=== PATIENT | male | born 1950 | race Hispanic/Latino ===

== ENCOUNTER 2021-06-27 16:30 | Inpatient (IN) | payer MEDICARE ==
[~2021-06-27] VITALS: Ht 167.6 cm; Wt 70.3 kg
[2021-06-27] MEDS ORDERED: NITROGLYCERIN 0.4 MG SL TAB SL ONE (16:38)
[2021-06-27] MEDS ORDERED: ASPIRIN 325MG TAB ONE (16:38)
[2021-06-27 16:59] LABS: BASOPHILS % (AUTO) 1.8 % (0.0-5.0); EOSINOPHILS % (AUTO) 2.4 % (0.0-8.0); HEMATOCRIT 39.1 % (42-54); LYMPHOCYTES % (AUTO) 9.2 % (21.0-51.0); MEAN CORPUSCULAR HEMOGLOBIN 31.2 pg (27.0-33.0); MEAN CORPUSCULAR HGB CONC 32.2 g/dL (32.0-36.0); MEAN CORPUSCULAR VOLUME 96.8 fL (79-99); MONOCYTES % (AUTO) 18.5 % (3.0-13.0); PLATELET COUNT (AUTO) 304 K/uL (130-400); RED BLOOD CELL COUNT(AUTO) 4.04 MIL/uL (4.50-6.20); WHITE BLOOD COUNT (AUTO) 19.5 K/uL (4.8-10.8)
[2021-06-27] MEDS ORDERED: ASPIRIN 325MG TAB PO ONE (17:00)
[2021-06-27] MEDS ORDERED: NITROGLYCERIN 0.4 MG SL TAB SL PRN ×3 (17:00→20:30)
[2021-06-27 17:10] LABS: CREATININE 1.3 mg/dL (0.5-1.5); POTASSIUM 4.3 mmol/L (3.5-5.1)
[2021-06-27 17:12] LABS: INR 1.04 (0.85-1.15); PROTHROMBIN TIME 11.3 SEC (9.6-11.6)
[2021-06-27 17:15] LABS: BILIRUBIN,TOTAL 0.2 mg/dL (0.2-1.0); TOTAL PROTEIN, SERUM 7.9 g/dL (6.0-8.3)
[2021-06-27 17:24] LABS: B-TYPE NATRIURETIC PEPTIDE 851 pg/mL (0-100)
[2021-06-27 19:11] LABS: APPEARANCE,URINE Clear (CLEAR); BILIRUBIN,URINE Negative (NEGATIVE); COLOR,URINE Yellow (YELLOW); GLUCOSE, URINE (UA) >=1000 mg/dL (NEGATIVE); KETONES,URINE Negative (NEGATIVE); LEUKOCYTE ESTERASE ,URINE Negative (NEGATIVE); NITRATE,URINE Negative (NEGATIVE); OCCULT BLOOD,URINE Negative (NEGATIVE); PROTEIN,URINE POS 1+ mg/dL (NEGATIVE)
[2021-06-27 19:20] LABS: AMPHET/METH SCREEN,URINE NEGATIVE (NEGATIVE); BARBITURATE SCREEN, URINE NEGATIVE (NEGATIVE); BENZODIAZEPINES SCREEN,URINE NEGATIVE (NEGATIVE); CANNABINOID SCREEN,URINE NEGATIVE (NEGATIVE); COCAINE SCREEN,URINE NEGATIVE (NEGATIVE); OPIATE SCREEN,URINE NEGATIVE (NEGATIVE); PHENCYCLIDINE SCREEN,URINE NEGATIVE (NEGATIVE)
[2021-06-27 19:21] LABS: BACTERIA,URINE None Seen /HPF (None Seen); RBC,URINE None Seen /HPF (0-1); WBC,URINE None Seen /HPF (0-1)
[2021-06-27] MEDS ORDERED: GUAIFENESIN-DM 200/20 MG 10 ML PO PRN (20:30)
[2021-06-27] MEDS ORDERED: HYDRALAZINE 20MG/ML VIAL IV PRN (20:30)
[2021-06-27] MEDS ORDERED: ACETAMINOPHEN 325 MG TAB PO PRN ×2 (20:30)
[2021-06-27] MEDS ORDERED: MORPHINE 2 MG SYG IV PRN (20:30)
[2021-06-27] MEDS ORDERED: ONDANSETRON 4MG INJ IV PRN (20:30)
[2021-06-27] MEDS ORDERED: DEXAMETHASONE SOD PHOSPHATE 4 MG/ML 1ML VIAL IVP SCH (20:30)
[2021-06-27 20:58] LABS: CHOLESTEROL 131 mg/dL (<200); HDL CHOLESTEROL 35 mg/dL (29-71); LDL DIRECT 75 mg/dL (0-99); TRIGLYCERIDES 73 mg/dL (30-200)
[2021-06-27] MEDS: INSULIN HUMULIN R 100 UNIT/ML 3ML SQ SCH (21:00)
[2021-06-27 21:35] LABS: ABG BASE EXCESS -0.6 mmol/L (-2.0-3.0); ABG HCO3 25.9 mmol/L (21.0-28.0); ABG OXYGEN SATURATION 97.8 % (95.0-99.0); ABG PCO2 49 mmHg (35-48)
[2021-06-27] MEDS ORDERED: IPRATROPIUM/ALBUTEROL SULFATE 3 ML SOLUTION IH ONE ×2 (21:40→22:00)
[2021-06-27] MEDS: CEFTRIAXONE 1G VIAL IV SCH (22:01)
[2021-06-27] MEDS: 0.9% NACL 250ML IVPB SCH (22:02)
[2021-06-27] MEDS: AZITHROMYCIN 500MG VIAL IVPB SCH (22:02)
[2021-06-28 05:01] LABS: HEMATOCRIT 33.2 % (42-54); MEAN CORPUSCULAR HEMOGLOBIN 30.8 pg (27.0-33.0); MEAN CORPUSCULAR HGB CONC 32.2 g/dL (32.0-36.0); MEAN CORPUSCULAR VOLUME 95.7 fL (79-99); RED BLOOD CELL COUNT(AUTO) 3.47 MIL/uL (4.50-6.20)
[2021-06-28] MEDS: IPRATROPIUM/ALBUTEROL SULFATE 3 ML SOLUTION IH SCH ×4 (06:14→23:06)
[2021-06-28] MEDS: INSULIN HUMULIN R 100 UNIT/ML 3ML SQ SCH ×4 (07:30→20:38)
[2021-06-28] MEDS: ASPIRIN 81MG CHEW TAB PO SCH (07:40)
[2021-06-28] MEDS: FAMOTIDINE 20MG VIAL IV SCH (07:40)
[2021-06-28] MEDS: ENOXAPARIN SODIUM 40 MG/0.4 ML SYRINGE SQ SCH (07:40)
[2021-06-28] MEDS: CARVEDILOL 3.125 MG TABLET PO SCH ×2 (08:06→20:38)
[2021-06-28 08:47] LABS: MAGNESIUM 2.3 mg/dL (1.80-2.40); POTASSIUM 4.1 mmol/L (3.5-5.1)
[2021-06-28] MEDS ORDERED: FUROSEMIDE 20MG VIAL IV SCH (09:00)
[2021-06-28] MEDS ORDERED: PREDNISONE 20 MG TABLET PO SCH (11:00)
[2021-06-28] MEDS: BUDESONIDE 0.5 MG/2 ML INH IH SCH ×2 (11:44→18:33)
[2021-06-28] MEDS: CLOPIDOGREL 75MG TAB PO SCH (12:57)
[2021-06-28] MEDS: DEXAMETHASONE SOD PHOSPHATE 4 MG/ML 1ML VIAL IVP SCH ×2 (12:57→18:43)
[2021-06-28] MEDS ORDERED: SODIUM CHLORIDE 3% FOR INHALATION 4 ML/AMP VIAL.NEB IH ONE (18:36)
[2021-06-28] MEDS ORDERED: FURO40TA5 PO (19:30)
[2021-06-28] MEDS ORDERED: CITA10TA89 PO (19:30)
[2021-06-28] MEDS ORDERED: ALBUHFA IH (19:30)
[2021-06-28] MEDS ORDERED: SPIR25TA6 PO (19:30)
[2021-06-28] MEDS ORDERED: CARV3.12 PO (19:30)
[2021-06-28] MEDS ORDERED: AEC81 PO (19:30)
[2021-06-28] MEDS ORDERED: LEVO50CA4 PO (19:30)
[2021-06-28] MEDS ORDERED: IPRA0.2S54 IH (19:30)
[2021-06-28] MEDS ORDERED: CLOP100P MC (19:30)
[2021-06-28] MEDS ORDERED: EMPA10TA PO (19:30)
[2021-06-28] MEDS ORDERED: LISI5TAB21 PO (19:30)
[2021-06-28] MEDS ORDERED: METO-408 PO (19:30)
[2021-06-28] MEDS: FUROSEMIDE 20MG VIAL IV SCH (20:36)
[2021-06-28] MEDS: CEFTRIAXONE 1G VIAL IV SCH (20:36)
[2021-06-28] MEDS: 0.9% NACL 250ML IVPB SCH (20:38)
[2021-06-28] MEDS: AZITHROMYCIN 500MG VIAL IVPB SCH (20:38)
[2021-06-29] MEDS: DEXAMETHASONE SOD PHOSPHATE 4 MG/ML 1ML VIAL IVP SCH ×2 (00:22→07:00)
[2021-06-29] MEDS: BUDESONIDE 0.5 MG/2 ML INH IH SCH (06:09)
[2021-06-29] MEDS: IPRATROPIUM/ALBUTEROL SULFATE 3 ML SOLUTION IH SCH ×2 (06:09→11:04)
[2021-06-29] MEDS: INSULIN HUMULIN R 100 UNIT/ML 3ML SQ SCH ×2 (07:23→11:56)
[2021-06-29 07:40] LABS: BASOPHILS % (AUTO) 0.6 % (0.0-5.0); EOSINOPHILS % (AUTO) 0.1 % (0.0-8.0); HEMATOCRIT 32.7 % (42-54); LYMPHOCYTES % (AUTO) 5.2 % (21.0-51.0); MEAN CORPUSCULAR HEMOGLOBIN 31.1 pg (27.0-33.0); MEAN CORPUSCULAR HGB CONC 32.7 g/dL (32.0-36.0); MEAN CORPUSCULAR VOLUME 95.1 fL (79-99); MONOCYTES % (AUTO) 4.4 % (3.0-13.0); NEUTROPHILS % (AUTO) 85.8 % (40.0-77.0); PLATELET COUNT (AUTO) 282 K/uL (130-400); RED BLOOD CELL COUNT(AUTO) 3.44 MIL/uL (4.50-6.20); RED CELL DISTRIBUTION WIDTH 15.6 % (11.0-15.5)
[2021-06-29 07:49] LABS: CREATININE 1.1 mg/dL (0.5-1.5); MAGNESIUM 2.4 mg/dL (1.80-2.40); POTASSIUM 4.8 mmol/L (3.5-5.1)
[2021-06-29] MEDS: FAMOTIDINE 20MG VIAL IV SCH (08:43)
[2021-06-29] MEDS: FUROSEMIDE 20MG VIAL IV SCH (08:43)
[2021-06-29] MEDS: ASPIRIN 81MG CHEW TAB PO SCH (08:43)
[2021-06-29] MEDS: CLOPIDOGREL 75MG TAB PO SCH (08:44)
[2021-06-29] MEDS: CARVEDILOL 3.125 MG TABLET PO SCH (08:47)
[2021-06-29] MEDS: ENOXAPARIN SODIUM 40 MG/0.4 ML SYRINGE SQ SCH (08:47)
[2021-06-29] MEDS ORDERED: NICOTINE 21 MG/ 24 HR PATCH TD SCH (09:00)
[2021-06-29] MEDS ORDERED: CEFDINIR 250MG/5ML 60ML BOTTLE PO SCH (11:30)
[2021-06-29] MEDS ORDERED: CEFD250S3 PO (13:03)
[2021-06-29] MEDS ORDERED: PRED20B PO (13:03)
[2021-06-29 15:51] VITALS: BP 110/60
[2021-06-30] MEDS ORDERED: PREDNISONE 20 MG TABLET PO SCH (09:00)
[2021-09-16] MEDS ORDERED: TIOT18CA3 IH (16:52)
[2021-09-16] MEDS ORDERED: TIZA-211 PO (16:52)
[2021-09-16] MEDS ORDERED: DICL50TA9 PO (16:52)
[2021-09-16] MEDS ORDERED: CITA10TA89 PO (16:52)
[2021-09-16] MEDS ORDERED: CLOP75TA32 PO (16:52)
[2021-09-16] MEDS ORDERED: SPIR25TA6 PO (16:52)
[2021-09-16] MEDS ORDERED: GABA300C PO (16:52)
[2021-09-16] MEDS ORDERED: FLUT1AER IH (16:52)
[2021-09-16] MEDS ORDERED: EMPA10TA PO (16:52)
== END 2021-06-29 16:30 | disposition home or self-care (01) | DRG 189 ==
LOC: EDH 16:30 → EDHIP 20:18
PROVIDERS: ADMIT Internal Medicine; ATTEND Internal Medicine
DX: J96.21 Acute and chronic respiratory failure with hypoxia (principal); I13.0 Hypertensive heart and chronic kidney disease with heart failure and stage 1 through stage 4 chronic kidney disease, or unspecified chronic kidney disease; I24.9 Acute ischemic heart disease, unspecified; J44.1 Chronic obstructive pulmonary disease with (acute) exacerbation; J44.0 Chronic obstructive pulmonary disease with (acute) lower respiratory infection; N17.9 Acute kidney failure, unspecified; I25.110 Atherosclerotic heart disease of native coronary artery with unstable angina pectoris; J96.22 Acute and chronic respiratory failure with hypercapnia; J20.9 Acute bronchitis, unspecified; I50.9 Heart failure, unspecified; Z20.822 Contact with and (suspected) exposure to COVID-19; E78.5 Hyperlipidemia, unspecified; F17.210 Nicotine dependence, cigarettes, uncomplicated; F14.10 Cocaine abuse, uncomplicated; N18.30 Chronic kidney disease, stage 3 unspecified; E11.22 Type 2 diabetes mellitus with diabetic chronic kidney disease; I25.2 Old myocardial infarction; Z95.5 Presence of coronary angioplasty implant and graft; Z91.19 Patient's noncompliance with other medical treatment and regimen; Z86.73 Personal history of transient ischemic attack (TIA), and cerebral infarction without residual deficits
CPT/HCPCS: 36415; 36600; 70450; 71045; 80048; 80053; 80061; 80305; 81001; 82550; 82803; 82948; 83036; 83605; 83735; 83874; 83880; 84145; 84484; 85025; 85027; 85610; 87040; 87071; 87088; 87205; 87635; 93005; 93970; 94640; 94664; C9803; G0378; J0696; J1100; J1650; J1815; J1940; J3490

== ENCOUNTER 2021-10-30 15:58 | Inpatient (IN) | payer OTHER ==
[~2021-10-30] VITALS: Ht 167.6 cm; Wt 67.6 kg
[~2021-10-30 15:58] MED LIST: CITA10TA89 PO; CLOP75TA32 PO; DICL50TA9 PO; EMPA10TA PO; FLUT1AER IH; GABA300C PO; SPIR25TA6 PO; TIOT18CA3 IH; TIZA-211 PO
[2021-10-30] MEDS ORDERED: TRAMADOL /APAP 37.5MG/325MG TAB PO ONE (16:30)
[2021-10-30 16:34] LABS: BASOPHILS % (AUTO) 1.7 % (0.0-5.0); EOSINOPHILS % (AUTO) 2.1 % (0.0-8.0); HEMATOCRIT 32.1 % (42-54); LYMPHOCYTES % (AUTO) 9.5 % (21.0-51.0); MEAN CORPUSCULAR HEMOGLOBIN 31.8 pg (27.0-33.0); MEAN CORPUSCULAR HGB CONC 31.8 g/dL (32.0-36.0); MONOCYTES % (AUTO) 20.2 % (3.0-13.0); NEUTROPHILS % (AUTO) 39.7 % (40.0-77.0); NUCLEATED RED BLOOD CELLS 0.2 % (0.0-0.19); PLATELET COUNT (AUTO) 355 K/uL (130-400); RED BLOOD CELL COUNT(AUTO) 3.21 MIL/uL (4.50-6.20); WHITE BLOOD COUNT (AUTO) 22.3 K/uL (4.8-10.8)
[2021-10-30 16:43] LABS: CREATININE 1.2 mg/dL (0.5-1.5); POTASSIUM 4.8 mmol/L (3.5-5.1)
[2021-10-30 16:46] LABS: INR 1.04 (0.85-1.15); PROTHROMBIN TIME 11.3 SEC (9.6-11.6)
[2021-10-30 16:47] LABS: PARTIAL THROMBOPLASTIN TIME 29.9 SEC (26.3-35.5)
[2021-10-30 16:52] LABS: ALBUMIN 3.8 g/dL (3.5-5.0); BILIRUBIN,TOTAL 0.3 mg/dL (0.2-1.0); TOTAL PROTEIN, SERUM 8.2 g/dL (6.0-8.3)
[2021-10-30 17:21] LABS: AMPHET/METH SCREEN,URINE NEGATIVE (NEGATIVE); BARBITURATE SCREEN, URINE NEGATIVE (NEGATIVE); BENZODIAZEPINES SCREEN,URINE NEGATIVE (NEGATIVE); CANNABINOID SCREEN,URINE NEGATIVE (NEGATIVE); COCAINE SCREEN,URINE POSITIVE (NEGATIVE); OPIATE SCREEN,URINE NEGATIVE (NEGATIVE); PHENCYCLIDINE SCREEN,URINE NEGATIVE (NEGATIVE)
[2021-10-30] MEDS ORDERED: ENOXAPARIN SODIUM 60 MG/0.6 ML SQ ONE (18:00)
[2021-10-30] MEDS ORDERED: ASPIRIN 325MG EC TAB PO ONE (18:00)
[2021-10-30] MEDS ORDERED: 0.9% NACL 250ML 250 ML IV ONE (18:00)
[2021-10-30] MEDS ORDERED: ONDANSETRON 4MG INJ IVP PRN (18:30)
[2021-10-30] MEDS ORDERED: ACETAMINOPHEN 650 MG SUPPOSITORY RC PRN (18:30)
[2021-10-30] MEDS ORDERED: CLONIDINE HCL 0.1 MG TABLET PO PRN (18:30)
[2021-10-30 19:51] LABS: APPEARANCE,URINE CLEAR (CLEAR); BILIRUBIN,URINE NEGATIVE (NEGATIVE); COLOR,URINE YELLOW (YELLOW); GLUCOSE, URINE (UA) >=1000 mg/dL (NEGATIVE); KETONES,URINE NEGATIVE (NEGATIVE); LEUKOCYTE ESTERASE ,URINE NEGATIVE (NEGATIVE); NITRATE,URINE NEGATIVE (NEGATIVE); OCCULT BLOOD,URINE NEGATIVE (NEGATIVE); PH,URINE 6.5 (5.0-8.0); PROTEIN,URINE NEGATIVE (NEGATIVE); UROBILINOGEN,URINE 0.2 mg/dL (0.2-1.0)
[2021-10-30 19:56] LABS: BACTERIA,URINE Rare /HPF (None Seen); RBC,URINE 0-1 /HPF (0-1); SQUAMOUS EPITHELIAL CELL,UR Few /HPF (0-2); WBC,URINE 0-1 /HPF (0-1)
[2021-10-30] MEDS: INSULIN HUMULIN R 100 UNIT/ML 3ML SQ SCH (21:00)
[2021-10-30 21:40] VITALS: BP 123/59
[2021-10-30] MEDS: ACETAMINOPHEN 325 MG TAB PO PRN (22:12)
[2021-10-31] VITALS: BP 137/65
[2021-10-31 01:03] LABS: CREATINE KINASE, TOTAL 99 U/L (21-232); MYOGLOBIN 31 ng/mL (10-92)
[2021-10-31 04:00] VITALS: BP 127/70
[2021-10-31] MEDS: MORPHINE 2 MG SYG IVP PRN ×2 (05:22→19:55)
[2021-10-31 05:52] LABS: BASOPHILS % (AUTO) 2.1 % (0.0-5.0); EOSINOPHILS % (AUTO) 2.7 % (0.0-8.0); MEAN CORPUSCULAR HEMOGLOBIN 32.2 pg (27.0-33.0); MEAN CORPUSCULAR HGB CONC 31.9 g/dL (32.0-36.0); MONOCYTES % (AUTO) 19.9 % (3.0-13.0); NEUTROPHILS % (AUTO) 44.6 % (40.0-77.0); NUCLEATED RED BLOOD CELLS 0.1 % (0.0-0.19); PLATELET COUNT (AUTO) 336 K/uL (130-400); RED BLOOD CELL COUNT(AUTO) 3.07 MIL/uL (4.50-6.20); RED CELL DISTRIBUTION WIDTH 16.3 % (11.0-15.5); WHITE BLOOD COUNT (AUTO) 22.4 K/uL (4.8-10.8)
[2021-10-31 06:12] LABS: B-TYPE NATRIURETIC PEPTIDE 349 pg/mL (0-100)
[2021-10-31 06:29] LABS: MAGNESIUM 2.3 mg/dL (1.80-2.40); PHOSPHORUS 3.2 mg/dL (2.5-4.9); POTASSIUM 4.6 mmol/L (3.5-5.1); THYROID STIMULATING HORMONE 25.42 uIU/mL (0.36-3.74)
[2021-10-31] MEDS: INSULIN HUMULIN R 100 UNIT/ML 3ML SQ SCH ×4 (06:32→21:08)
[2021-10-31] MEDS: BUDESONIDE 0.5 MG/2 ML INH IH SCH ×2 (06:59→18:54)
[2021-10-31 07:50] VITALS: BP 135/76
[2021-10-31] MEDS: ACETAMINOPHEN 325 MG TAB PO PRN (08:45)
[2021-10-31] MEDS: ASPIRIN 81MG CHEW TAB PO SCH (08:46)
[2021-10-31] MEDS: PANTOPRAZOLE 40 MG TAB DR PO SCH (08:46)
[2021-10-31] MEDS: ENOXAPARIN SODIUM 40 MG/0.4 ML SYRINGE SQ SCH (08:47)
[2021-10-31] MEDS: LEVOFLOXACIN 750 MG/D5W 150 ML 150 ML IV SCH (08:48)
[2021-10-31] MEDS: IPRATROPIUM/ALBUTEROL SULFATE 3 ML SOLUTION IH SCH ×3 (11:16→23:41)
[2021-10-31 11:25] VITALS: BP 122/74
[2021-10-31 15:25] VITALS: BP 112/76
[2021-10-31 20:00] VITALS: BP 127/67
[2021-11-01] VITALS: BP 135/79
[2021-11-01 04:00] VITALS: BP 109/62
[2021-11-01 04:54] LABS: BASOPHILS % (AUTO) 1.1 % (0.0-5.0); EOSINOPHILS % (AUTO) 1.3 % (0.0-8.0); HEMATOCRIT 30.7 % (42-54); LYMPHOCYTES % (AUTO) 5.5 % (21.0-51.0); MEAN CORPUSCULAR HEMOGLOBIN 31.6 pg (27.0-33.0); MEAN CORPUSCULAR HGB CONC 31.9 g/dL (32.0-36.0); MONOCYTES % (AUTO) 18.6 % (3.0-13.0); NEUTROPHILS % (AUTO) 58.1 % (40.0-77.0); NUCLEATED RED BLOOD CELLS 0.1 % (0.0-0.19); PLATELET COUNT (AUTO) 325 K/uL (130-400); RED CELL DISTRIBUTION WIDTH 15.9 % (11.0-15.5); WHITE BLOOD COUNT (AUTO) 26.4 K/uL (4.8-10.8)
[2021-11-01 05:11] LABS: ALBUMIN 3.5 g/dL (3.5-5.0); BILIRUBIN,TOTAL 0.4 mg/dL (0.2-1.0); CREATININE 1.2 mg/dL (0.5-1.5); POTASSIUM 4.2 mmol/L (3.5-5.1); TOTAL PROTEIN, SERUM 7.6 g/dL (6.0-8.3)
[2021-11-01] MEDS: INSULIN HUMULIN R 100 UNIT/ML 3ML SQ SCH ×4 (05:42→20:26)
[2021-11-01] MEDS: LEVOTHYROXINE 50 MCG TABLET PO SCH (06:05)
[2021-11-01] MEDS: BUDESONIDE 0.5 MG/2 ML INH IH SCH ×2 (06:26→18:55)
[2021-11-01] MEDS: IPRATROPIUM/ALBUTEROL SULFATE 3 ML SOLUTION IH SCH ×4 (06:26→23:28)
[2021-11-01 07:30] VITALS: BP 126/77
[2021-11-01] MEDS: LEVOFLOXACIN 750 MG/D5W 150 ML 150 ML IV SCH (09:00)
[2021-11-01] MEDS: ENOXAPARIN SODIUM 40 MG/0.4 ML SYRINGE SQ SCH (09:01)
[2021-11-01] MEDS: ASPIRIN 81MG CHEW TAB PO SCH (09:01)
[2021-11-01] MEDS: PANTOPRAZOLE 40 MG TAB DR PO SCH (09:02)
[2021-11-01] MEDS ORDERED: SODIUM CHLORIDE 3% FOR INHALATION 4 ML/AMP VIAL.NEB IH ONE (11:12)
[2021-11-01 11:20] VITALS: BP 105/68
[2021-11-01] MEDS: ACETAMINOPHEN 325 MG TAB PO PRN ×2 (13:50→20:32)
[2021-11-01] MEDS ORDERED: ARTIFICAL TEARS SOL 15 ML OU PRN (15:00)
[2021-11-01 15:25] VITALS: BP 122/69
[2021-11-01 20:00] VITALS: BP 119/59
[2021-11-01] MEDS: TEMAZEPAM 15 MG CAPSULE PO PRN (20:32)
[2021-11-01] MEDS ORDERED: FURO40TA5 PO (23:45)
[2021-11-01] MEDS ORDERED: ATOR40TA71 PO (23:45)
[2021-11-01] MEDS ORDERED: IPRA3AMP24 NEB (23:45)
[2021-11-01] MEDS ORDERED: CITA-106 PO (23:45)
[2021-11-01] MEDS ORDERED: CARV3.12 PO (23:45)
[2021-11-02] VITALS (7 sets, daily range): BP systolic 105–136; BP diastolic 59–73
[2021-11-02 04:34] LABS: BASOPHILS % (AUTO) 1.3 % (0.0-5.0); EOSINOPHILS % (AUTO) 2.3 % (0.0-8.0); HEMATOCRIT 29.6 % (42-54); LYMPHOCYTES % (AUTO) 9.6 % (21.0-51.0); MEAN CORPUSCULAR HEMOGLOBIN 31.6 pg (27.0-33.0); MEAN CORPUSCULAR HGB CONC 32.1 g/dL (32.0-36.0); MEAN CORPUSCULAR VOLUME 98.3 fL (79-99); MONOCYTES % (AUTO) 22.8 % (3.0-13.0); NUCLEATED RED BLOOD CELLS 0.1 % (0.0-0.19); PLATELET COUNT (AUTO) 325 K/uL (130-400); RED BLOOD CELL COUNT(AUTO) 3.01 MIL/uL (4.50-6.20); RED CELL DISTRIBUTION WIDTH 16.1 % (11.0-15.5); WHITE BLOOD COUNT (AUTO) 19.1 K/uL (4.8-10.8)
[2021-11-02 04:49] LABS: ALBUMIN 3.3 g/dL (3.5-5.0); BILIRUBIN,TOTAL 0.3 mg/dL (0.2-1.0); CREATININE 1.2 mg/dL (0.5-1.5); POTASSIUM 3.9 mmol/L (3.5-5.1); TOTAL PROTEIN, SERUM 7.3 g/dL (6.0-8.3)
[2021-11-02] MEDS: LEVOTHYROXINE 50 MCG TABLET PO SCH (05:28)
[2021-11-02] MEDS: INSULIN HUMULIN R 100 UNIT/ML 3ML SQ SCH ×4 (05:47→20:56)
[2021-11-02] MEDS: IPRATROPIUM/ALBUTEROL SULFATE 3 ML SOLUTION IH SCH ×4 (07:53→23:57)
[2021-11-02] MEDS: BUDESONIDE 0.5 MG/2 ML INH IH SCH ×2 (07:53→19:09)
[2021-11-02] MEDS: LEVOFLOXACIN 750 MG/D5W 150 ML 150 ML IV SCH (08:37)
[2021-11-02] MEDS: ASPIRIN 81MG CHEW TAB PO SCH (08:37)
[2021-11-02] MEDS: PANTOPRAZOLE 40 MG TAB DR PO SCH (08:37)
[2021-11-02] MEDS: ENOXAPARIN SODIUM 40 MG/0.4 ML SYRINGE SQ SCH (08:38)
[2021-11-02] MEDS: ACETAMINOPHEN 325 MG TAB PO PRN ×2 (11:26→20:55)
[2021-11-02] MEDS: TEMAZEPAM 15 MG CAPSULE PO PRN (20:55)
[2021-11-03 04:14] VITALS: BP 115/69
[2021-11-03] MEDS: LEVOTHYROXINE 50 MCG TABLET PO SCH (04:59)
[2021-11-03 05:24] LABS: CREATININE 1.2 mg/dL (0.5-1.5); POTASSIUM 4.2 mmol/L (3.5-5.1)
[2021-11-03 05:28] LABS: HEMATOCRIT 28.7 % (42-54); MEAN CORPUSCULAR HEMOGLOBIN 31.2 pg (27.0-33.0); MEAN CORPUSCULAR HGB CONC 31.7 g/dL (32.0-36.0); MEAN CORPUSCULAR VOLUME 98.3 fL (79-99); NUCLEATED RED BLOOD CELLS 0.2 % (0.0-0.19); RED BLOOD CELL COUNT(AUTO) 2.92 MIL/uL (4.50-6.20)
[2021-11-03] MEDS: INSULIN HUMULIN R 100 UNIT/ML 3ML SQ SCH ×3 (05:55→16:30)
[2021-11-03] MEDS: IPRATROPIUM/ALBUTEROL SULFATE 3 ML SOLUTION IH SCH ×2 (07:03→11:31)
[2021-11-03] MEDS: BUDESONIDE 0.5 MG/2 ML INH IH SCH (07:03)
[2021-11-03 08:00] VITALS: BP 132/68
[2021-11-03] MEDS: LEVOFLOXACIN 750 MG/D5W 150 ML 150 ML IV SCH (08:19)
[2021-11-03] MEDS: ASPIRIN 81MG CHEW TAB PO SCH (08:20)
[2021-11-03] MEDS: PANTOPRAZOLE 40 MG TAB DR PO SCH (08:20)
[2021-11-03] MEDS: ENOXAPARIN SODIUM 40 MG/0.4 ML SYRINGE SQ SCH (08:21)
[2021-11-03 12:00] VITALS: BP 119/76
[2021-11-03 16:00] VITALS: BP 131/75
[2021-11-03] MEDS ORDERED: LEVO500T90 PO (16:22)
== END 2021-11-03 17:15 | disposition home or self-care (01) | DRG 191 ==
LOC: EDH 15:58 → EDHIP 18:04 → OBSVTOIN 18:04 → INTOOBSV 18:04 → 3DH 21:18
PROVIDERS: ADMIT Internal Medicine Critical Care Medicine; ATTEND Internal Medicine Critical Care Medicine
DX: J44.1 Chronic obstructive pulmonary disease with (acute) exacerbation (principal); I13.0 Hypertensive heart and chronic kidney disease with heart failure and stage 1 through stage 4 chronic kidney disease, or unspecified chronic kidney disease; I50.20 Unspecified systolic (congestive) heart failure; I69.351 Hemiplegia and hemiparesis following cerebral infarction affecting right dominant side; C92.10 Chronic myeloid leukemia, BCR/ABL-positive, not having achieved remission; S00.83XA Contusion of other part of head, initial encounter; D63.8 Anemia in other chronic diseases classified elsewhere; F14.10 Cocaine abuse, uncomplicated; E78.5 Hyperlipidemia, unspecified; F32.A Depression, unspecified; E03.9 Hypothyroidism, unspecified; E11.22 Type 2 diabetes mellitus with diabetic chronic kidney disease; E11.649 Type 2 diabetes mellitus with hypoglycemia without coma; F17.200 Nicotine dependence, unspecified, uncomplicated; I25.10 Atherosclerotic heart disease of native coronary artery without angina pectoris; N18.9 Chronic kidney disease, unspecified; W01.0XXA Fall on same level from slipping, tripping and stumbling without subsequent striking against object, initial encounter; Y92.410 Unspecified street and highway as the place of occurrence of the external cause; Y93.01 Activity, walking, marching and hiking; Y99.8 Other external cause status; I25.2 Old myocardial infarction; Z79.02 Long term (current) use of antithrombotics/antiplatelets; Z79.51 Long term (current) use of inhaled steroids; Z79.84 Long term (current) use of oral hypoglycemic drugs; Z79.899 Other long term (current) drug therapy; Z95.5 Presence of coronary angioplasty implant and graft; Z91.19 Patient's noncompliance with other medical treatment and regimen; Z04.89 Encounter for examination and observation for other specified reasons
CPT/HCPCS: 36415; 70450; 70486; 71045; 72125; 80048; 80053; 80305; 81001; 82550; 82948; 83735; 83874; 83880; 84100; 84443; 84484; 85025; 85027; 85610; 85730; 87040; 87071; 87205; 93005; 93306; 93356; 93880; 94640; 94664; 94667; 94668; 99291; G0378; J1650; J1815; J1956

== ENCOUNTER 2021-11-08 08:06 | Emergency (ER) | payer OTHER ==
[~2021-11-08] VITALS: Ht 167.6 cm; Wt 68.5 kg
[~2021-11-08 08:06] MED LIST changes: +ATOR40TA71 PO; +CARV3.12 PO; +CITA-106 PO; +FURO40TA5 PO; +IPRA3AMP24 NEB; +LEVO500T90 PO; -SPIR25TA6 PO
[2021-11-08] MEDS ORDERED: ACETAMINOPHEN 500 MG TABLET PO SCH (09:00)
[2021-11-08 09:06] LABS: BASOPHILS % (AUTO) 2.3 % (0.0-5.0); EOSINOPHILS % (AUTO) 1.4 % (0.0-8.0); HEMATOCRIT 32.3 % (42-54); LYMPHOCYTES % (AUTO) 5.4 % (21.0-51.0); MEAN CORPUSCULAR HEMOGLOBIN 31.7 pg (27.0-33.0); MEAN CORPUSCULAR HGB CONC 31.6 g/dL (32.0-36.0); MEAN CORPUSCULAR VOLUME 100.3 fL (79-99); MONOCYTES % (AUTO) 19.1 % (3.0-13.0); NEUTROPHILS % (AUTO) 56.4 % (40.0-77.0); NUCLEATED RED BLOOD CELLS 0.1 % (0.0-0.19); PLATELET COUNT (AUTO) 436 K/uL (130-400); RED BLOOD CELL COUNT(AUTO) 3.22 MIL/uL (4.50-6.20); RED CELL DISTRIBUTION WIDTH 15.7 % (11.0-15.5)
[2021-11-08 09:07] LABS: WHITE BLOOD COUNT (AUTO) 36.2 K/uL (4.8-10.8)
[2021-11-08 09:12] LABS: ALBUMIN 3.6 g/dL (3.5-5.0); BILIRUBIN,TOTAL 0.4 mg/dL (0.2-1.0); CREATININE 1.4 mg/dL (0.5-1.5); POTASSIUM 4.6 mmol/L (3.5-5.1); TOTAL PROTEIN, SERUM 8.5 g/dL (6.0-8.3)
[2021-11-08] MEDS ORDERED: ZOSYN 3.375GM+NS 50ML 50 ML ONE (09:15)
[2021-11-08] MEDS ORDERED: 0.9%NACL 50ML 50 ML IV ONE (09:16)
[2021-11-08 09:30] LABS: APPEARANCE,URINE Clear (CLEAR); BILIRUBIN,URINE Negative (NEGATIVE); COLOR,URINE Yellow (YELLOW); GLUCOSE, URINE (UA) >=1000 mg/dL (NEGATIVE); KETONES,URINE Negative (NEGATIVE); LEUKOCYTE ESTERASE ,URINE Negative (NEGATIVE); NITRATE,URINE Negative (NEGATIVE); OCCULT BLOOD,URINE Negative (NEGATIVE); PH,URINE 5.5 (5.0-8.0); PROTEIN,URINE Negative (NEGATIVE); UROBILINOGEN,URINE 0.2 mg/dL (0.2-1.0)
[2021-11-08] MEDS ORDERED: 0.9%NACL 1000ML 1,000 ML IV SCH ×2 (09:30→12:30)
[2021-11-08] MEDS ORDERED: ZOSYN 3.375GM +NS 50ML IV SCH (09:30)
[2021-11-08 09:46] LABS: INR 1.1 (0.85-1.15); PROTHROMBIN TIME 11.9 SEC (9.6-11.6)
[2021-11-08 09:48] LABS: PARTIAL THROMBOPLASTIN TIME 36.5 SEC (26.3-35.5)
[2021-11-08] MEDS ORDERED: IOHEXOL-350 75 ML VIAL IV ONE (09:58)
[2021-11-08 10:05] LABS: BACTERIA,URINE Rare /HPF (None Seen); RBC,URINE None Seen /HPF (0-1); SQUAMOUS EPITHELIAL CELL,UR None Seen /HPF (0-2); WBC,URINE None Seen /HPF (0-1)
[2021-11-08 10:13] LABS: EOSINOPHILS % (MANUAL) 2 % (1-6); LYMPHOCYTES % (MANUAL) 15 % (22-44); MAN.DIFF COMMENT-IMPRESSION MANUAL DIFFERENTIAL; MONOCYTES % (MANUAL) 17 % (2-9); PLATELET MORPHOLOGY COMMENT ADEQUATE; SEGMENTED NEUTROPHILS % 66 % (40-70)
[2021-11-08] MEDS ORDERED: MORPHINE 2 MG SYG ONE (10:58)
[2021-11-08] MEDS ORDERED: ONDANSETRON 4MG INJ ONE (10:58)
[2021-11-08] MEDS ORDERED: MORPHINE 2 MG SYG IVP SCH (11:00)
[2021-11-08] MEDS ORDERED: ONDANSETRON 4MG INJ IVP SCH (11:00)
[2021-11-08 11:52] VITALS: BP 117/61
[2021-11-08] MEDS ORDERED: LACT10SO5 PO (12:47)
[2021-11-08] MEDS ORDERED: KETOROLAC 15MG/ML VIAL (15MG/ML) IV ONE (13:00)
== END 2021-11-08 13:44 | disposition home or self-care (01) ==
LOC: EDH 08:06
DX: K59.00 Constipation, unspecified (principal); C95.90 Leukemia, unspecified not having achieved remission; E11.9 Type 2 diabetes mellitus without complications; E78.00 Pure hypercholesterolemia, unspecified; I10 Essential (primary) hypertension; J44.9 Chronic obstructive pulmonary disease, unspecified; F17.200 Nicotine dependence, unspecified, uncomplicated; Z79.51 Long term (current) use of inhaled steroids; Z79.899 Other long term (current) drug therapy
CPT/HCPCS: 36415; 74177; 80053; 81001; 82550; 83605; 84484; 85025; 85610; 85730; 87040 ×2; 87088; 96365; 96375; 99285; J1885; J2405; J2543; Q9967

== ENCOUNTER 2022-03-18 09:07 | Emergency (ER) | payer OTHER ==
[~2022-03-18] VITALS: Ht 167.6 cm; Wt 79.4 kg
[~2022-03-18 09:07] MED LIST changes: -CITA10TA89 PO; -CLOP75TA32 PO; -DICL50TA9 PO; +DOXY100C5 PO; -IPRA3AMP24 NEB; +LACT10SO5 PO; -LEVO500T90 PO; +PRED20TA3 PO
[2022-03-18] MEDS ORDERED: ACET-2079 PO (09:55)
[2022-03-18] MEDS ORDERED: AMOX1TAB16 PO (09:55)
[2022-03-18] MEDS ORDERED: METH4TAB3 PO (09:55)
[2022-03-18] MEDS ORDERED: HYDROCODONE/ACETAMINOPHEN 5/325 MG TAB PO ONE (10:00)
[2022-03-18] MEDS ORDERED: DEXAMETHASONE 4 MG TAB PO SCH (10:00)
[2022-03-18] MEDS ORDERED: CEFTRIAXONE 1G VIAL IM ONE (10:00)
[2022-03-18 10:32] VITALS: BP 128/57
== END 2022-03-18 10:35 | disposition home or self-care (01) ==
LOC: EDH 09:07
DX: L03.211 Cellulitis of face (principal); K08.89 Other specified disorders of teeth and supporting structures; E11.9 Type 2 diabetes mellitus without complications; I10 Essential (primary) hypertension; F17.200 Nicotine dependence, unspecified, uncomplicated; Z79.51 Long term (current) use of inhaled steroids; Z79.52 Long term (current) use of systemic steroids; Z79.899 Other long term (current) drug therapy; Z95.5 Presence of coronary angioplasty implant and graft
CPT/HCPCS: 99283; 82948; 96372; J0696; J8540

== ENCOUNTER → 2022-06-01 | Outpatient (CLI) | payer OTHER ==
[~2022-06-01] VITALS: Ht 167.6 cm; Wt 77.1 kg
[~2022-06-01] MED LIST changes: +ACET-2079 PO; +AMOX1TAB16 PO; +METH4TAB3 PO; +REGADENOSON 0.4 MG/5 ML PF SYG IVP SCH
== END | disposition home or self-care (01) ==
LOC: SHCH 08:58
PROVIDERS: ATTEND Internal Medicine Cardiovascular Disease
DX: R06.00 Dyspnea, unspecified (principal); Z79.899 Other long term (current) drug therapy
CPT/HCPCS: 78452; 96374; 93017; J2785; A9500 ×2

== ENCOUNTER → 2022-09-11 | Outpatient (CLI) | payer OTHER ==
[~2022-09-11] VITALS: Ht 167.6 cm; Wt 85.8 kg
[~2022-09-11] MED LIST changes: -ACET-2079 PO; +AMINOCAPROIC ACID IV PRN; -AMOX1TAB16 PO; +CEFAZOLIN SODIUM 1 GM VIAL IRRIG ONE; +CEFAZOLIN SODIUM 2 GM VIAL IVPB ONE; +DASA140T PO; -DOXY100C5 PO; +EPINEPHRINE IV PRN; -FLUT1AER IH; +IPRA3AMP24 IH; +ISOS30TA92 PO; -LACT10SO5 PO; +LEVO-170 PO; +LORA10TA7 PO; -METH4TAB3 PO; +NOREPINEPHRINE BITARTRATE 8 MG in DEXTROSE 5%-WATER 250 ML IV PRN; +NS IV PRN; +PAPAVERINE IJ ONE; -PRED20TA3 PO; -REGADENOSON 0.4 MG/5 ML PF SYG IVP SCH; +SACU1TAB PO; +SODIUM CHLORIDE IV PRN; -TIZA-211 PO
[2022-09-11 14:25] LABS: BASOPHILS % (AUTO) 0.6 % (0.0-5.0); EOSINOPHILS % (AUTO) 4.4 % (0.0-8.0); HEMATOCRIT 30.8 % (42-54); MEAN CORPUSCULAR HEMOGLOBIN 32.4 pg (27.0-33.0); MEAN CORPUSCULAR HGB CONC 32.1 g/dL (32.0-36.0); MEAN CORPUSCULAR VOLUME 100.7 fL (79-99); MONOCYTES % (AUTO) 10.9 % (3.0-13.0); NEUTROPHILS % (AUTO) 45.7 % (40.0-77.0); PLATELET COUNT (AUTO) 160 K/uL (130-400); RED BLOOD CELL COUNT(AUTO) 3.06 MIL/uL (4.50-6.20); RED CELL DISTRIBUTION WIDTH 14.8 % (11.0-15.5)
[2022-09-11 14:41] LABS: HEMOGLOBIN A1C 6.5 % (4.0-6.0)
[2022-09-11 14:42] LABS: PROTHROMBIN TIME 10.9 SEC (9.6-11.6)
[2022-09-11 14:43] LABS: PARTIAL THROMBOPLASTIN TIME 36.8 SEC (26.3-35.5)
[2022-09-11 14:49] LABS: ALBUMIN 3.9 g/dL (3.5-5.0); CREATININE 1.6 mg/dL (0.5-1.5); POTASSIUM 4.1 mmol/L (3.5-5.1); TOTAL PROTEIN, SERUM 8.8 g/dL (6.0-8.3)
[2022-09-11 14:54] LABS: B-TYPE NATRIURETIC PEPTIDE 833 pg/mL (0-100)
[2022-09-11 14:59] LABS: ABG BASE EXCESS -1.1 mmol/L (-2.0-3.0); ABG HCO3 23.6 mmol/L (21.0-28.0); ABG OXYGEN SATURATION 85.7 % (95.0-99.0); ABG PCO2 40 mmHg (35-48)
[2022-09-11 16:21] VITALS: BP 150/77
== END | disposition home or self-care (01) ==
LOC: DAH 10:00 → EDSTATUS 14:00
PROVIDERS: ATTEND Thoracic Surgery (Cardiothoracic Vascular Surgery)
DX: Z01.818 Encounter for other preprocedural examination (principal); I25.10 Atherosclerotic heart disease of native coronary artery without angina pectoris; I65.23 Occlusion and stenosis of bilateral carotid arteries; J84.10 Pulmonary fibrosis, unspecified; R91.8 Other nonspecific abnormal finding of lung field; I51.7 Cardiomegaly; I70.0 Atherosclerosis of aorta; Z20.822 Contact with and (suspected) exposure to COVID-19; Z79.01 Long term (current) use of anticoagulants; Z79.02 Long term (current) use of antithrombotics/antiplatelets; Z79.899 Other long term (current) drug therapy
CPT/HCPCS: 93880; 71045; 87426; 80061; 83036; 80053; 82803; 83880; 85025; 85610; 85730; 86850; 86900; 86901; 36415; 93005; 36600; 94010; 87641; A6260